=== PATIENT | female | born 1930 | race Caucasian/White ===

== ENCOUNTER 2017-03-14 18:08 | Inpatient (IN) | payer OTHER ==
[~2017-03-14] VITALS: Ht 157.5 cm; Wt 51.7 kg
--- NOTE | 2017-03-14 19:01 | NUR ---
PT IN ED WITH C/O COUGH X5 WEEKS AND SOB X1 DAY, PT REPORTS SEEING HER PCP 3 WEEKS AGO BUT THEY DIDNT GIVE HER ANY MEDICATIONS, PT IS IN MODERATE DISTRESS, BP IS ELEVATED, REPORTS SHE DOES NOT TAKE HER BP MED UNTIL THE EVENING, DENIES ANY PAIN AT THIS TIME; DR. FERNANDEZ PERFORMED MSE
[2017-03-14 19:06] LABS: CALCIUM 9.3 mg/dL (8.5-10.1); CARBON DIOXIDE 31.3 mmol/L (21-32); CHLORIDE SERUM 103 mmol/L (98-107); CREATININE SERUM 0.8 mg/dL (0.6-1.0); GLUCOSE SERUM 131 mg/dL (74-106); POTASSIUM SERUM 3.9 mmol/L (3.5-5.1); SODIUM SERUM 140 mmol/L (136-145)
[2017-03-14] MEDS ORDERED: EFFEXOR-XR37.5 MG PO (19:06)
[2017-03-14] MEDS ORDERED: LIPI10 PO (19:06)
[2017-03-14] MEDS ORDERED: ATENOLOL50 MG PO (19:07)
[2017-03-14] MEDS ORDERED: METFORMIN HYDR500 M1 PO (19:07)
[2017-03-14] MEDS ORDERED: COZAAR100 MG PO (19:07)
[2017-03-14] MEDS ORDERED: ALENDRONATE SOD70 M2 PO (19:08)
[2017-03-14] MEDS ORDERED: DORZOLAMIDE HYD10 ML OU (19:08)
--- NOTE | 2017-03-14 19:10 | NUR ---
XRAY AT BEDSIDE
--- NOTE | 2017-03-14 19:10 | NUR ---
REPORT RECEIVED FROM JF ARTEAGA AND JF JORDAN DAY SHIFT NURSES.
--- NOTE | 2017-03-14 19:13 | NUR ---
REPORT TO SHANNON RHOADES TO ASSUME CARE OF PT
[2017-03-14 19:19] LABS: BASOPHIL % 0.8 % (0-2); PLATELET COUNT 218 x10^3mcL (130-400); RED CELL DISTRIBUTION WIDTH 14.5 % (11.5-14.5)
[2017-03-14 19:29] LABS: ALBUMIN 3.4 g/dL (3.4-5.0); ALKALINE PHOSPHATASE 90 U/L (46-116); ALT/SGPT 14 U/L (14-59); AST/SGOT 14 U/L (15-37); BILIRUBIN TOTAL 0.6 mg/dL (0.20-1.00); T4(THYROXINE) 8.1 ug/dL (4.7-13.3); TOTAL PROTEIN, SERUM 7.8 g/dL (6.4-8.2)
[2017-03-14 19:42] LABS: CK-MB 0.6 ng/mL (0-3.6)
--- NOTE | 2017-03-14 19:53 | NUR ---
CALLED REPORT TO ALBERT, RECEIVING NURSE ON TELE.
--- NOTE | 2017-03-14 20:06 | NUR ---
PT AWARE FOR NEED FOR URINE SAMPLE. PT REPORTS THAT SHE JUST USED THE RESTROOM. TELE AWARE FOR NEED TO COLLECT URINE SAMPLE.
--- NOTE | 2017-03-14 20:20 | NUR ---
RECEIVED PT FROM ED VIA [facility], CAME IN DUE TO COUGH X5 WEEKS AND SOB X1 DAY. AAOX4. SPEECH IS CLEAR. W/ RIGHT FACIAL DROOP. HAND POLISHER APPRENTICE ARE EQUAL. DENIES HEADACHE/DIZZINESS. ABLE TO FOLLOW COMMANDS. C/O MILD SOB, RR=28. O2 SAT=96%. W/ LUNG CONGESTION NOTED ON AUSCULATATION. STATED THAT SHE HAS PRODUCTIVE COUGH, EXPECTORATES YELLOW PHLEGM. DENIES CHEST PAIN/PRESSURE, SR W/ MILD ST DEPRESSION AND PVC'S. DENIES ABDOMINAL DISCOMFORT. BOWEL SOUNDS ACTIVE. IV SITE PATENT AND INTACT. SIDE RAILS UPX2. CALL LIGHT ON REACH. ENDORSED TO PRIMARY NURSE ALBERT FOR CONTINUITY OF CARE.
[2017-03-14 20:31] VITALS: BP 216/95
[2017-03-14 20:34] VITALS: BP 216/95
--- NOTE | 2017-03-14 20:40 | NUR ---
SEEN PATIENT WALKED BACK FROM THE BATHROOM ASSISTED BY HER DAUGHTER. NO ANY DISTRESS NOTED. DENIESS DIZZINESS OR HEADACHE AT THIS TIME.
[2017-03-14 20:52] LABS: MAGNESIUM 1.7 mg/dL (1.8-2.4); PHOSPHOROUS 3.7 mg/dL (2.5-4.9)
[2017-03-14 20:53] LABS: CHOLESTEROL/HDL RATIO 2.6
[2017-03-14] MEDS ORDERED: METFORMIN HCL500 MG PO (20:57)
--- NOTE | 2017-03-14 21:59 | NUR ---
IVF NS STARTED AT 80ML/HR, MG RIDER INFUSING TO LT WRIST IV SITE. STS AWAITING FOR DAUGHTER TO BRING FOOD FROM HOME THEN PATIENT WILL TAKE BEDTIME MEDS. KEPT HOB EVEVATED AT 30DEG. DENIES HEADACHE/DIZZINESS OR CHEST PAIN AT THIS TIME.
--- NOTE | 2017-03-14 22:40 | NUR ---
DAUGHTER AT BEDSIDE, PATIENT FINISHED HER DINNER, COZAAR AND LOPRESSOR PO GIVEN. WILL CONTINUE TO MONITOR.
[2017-03-14 23:55] VITALS: BP 188/74
[2017-03-15] VITALS (9 sets, daily range): BP systolic 140–203; BP diastolic 73–96
--- NOTE | 2017-03-15 00:05 | NUR ---
BLOOD PRESSURE RECHECKED ON R UPPER ARM, READING IS 168/85. DENIES CHEST PAIN AT THIS TIME. DENIES PAIN AT THIS TIME. NO SOB NOTED. BREATHING IS EVEN AND UNLABORED. WILL CONTINUE TO MONITOR.
--- NOTE | 2017-03-15 00:15 | NUR ---
REPEATED BP AFTER COZAAR AND LOPRESSOR GIVEN BP =188/74, HR 72. DENIES HEADACHE OR CHEST PAIN. HYDRALAZINE 1MG IVP SLOWLY FOR ONE MINUTE GIVEN PER DOCTOR'S ORDER. WILL CONTINUE TO MONITOR.
--- NOTE | 2017-03-15 01:25 | NUR ---
PATIENT'S DAUGHTER CALLED, WENT INSIDE THE ROOM SAW PATIENT SITTING ON BSC. PER DAUGHTER STS HER MOTHER IS VERY WEAK AND ALMOST FALL OFF FROM THE BSC. ASSISTED PATIENT BACK FROM BSC, AWAKE, ALERT, ABLE TO FOLLOW COMMANDS. V/S CHECKED BP 149/81, HR 73, RR 22, O2SAT 96% O2 2LPM N/C MAINTAINED. FSBS =152. PATIENT STS SHE FEELS BETTER. KEPT PATIENT BEDREST AT THIS TIME. SCD TO BLE INPLACED. WILL CONTINUE TO MONITOR.
--- NOTE | 2017-03-15 02:30 | NUR ---
RESTING WITH EYES CLOSE. BREATHING EASY ON O2 2LPM N/C. DAUGTHER AT BEDSIDE. NS INFUSING WELL AT 80ML/HR.
[2017-03-15 05:52] LABS: microscopic required? YES; urine erythrocyte NEGATIVE (NEGATIVE)
[2017-03-15 06:00] LABS: AMPHETAMINE QUAL UR NONE DETECTED (NEG <=1000)
[2017-03-15 06:41] LABS: BASOPHIL % 0.3 % (0-2); PLATELET COUNT 212 x10^3mcL (130-400)
[2017-03-15 06:51] LABS: RED CELL DISTRIBUTION WIDTH 15.2 % (11.5-14.5)
[2017-03-15 07:09] LABS: CALCIUM 9.5 mg/dL (8.5-10.1); CARBON DIOXIDE 28.9 mmol/L (21-32); CHLORIDE SERUM 102 mmol/L (98-107); CREATININE SERUM 0.8 mg/dL (0.6-1.0); GLUCOSE SERUM 134 mg/dL (74-106); MAGNESIUM 2.4 mg/dL (1.8-2.4); PHOSPHOROUS 4.7 mg/dL (2.5-4.9); POTASSIUM SERUM 3.8 mmol/L (3.5-5.1); SODIUM SERUM 141 mmol/L (136-145)
--- NOTE | 2017-03-15 07:34 | NUR ---
RECEIVED PATIENT AWAKE/ALERT LAYING FLAT IN BED NO DISTRESS NOTED. DTR REMAIN AT BEDSIDE UPDATE POC. TELE # 15 NOTED; IV INTACT AND PATENT. TECH AT BEDSIDE PERFORM US VENOUS/ART TO ANDREA BARR. CALL LIGHT WITHIN REACH.
--- NOTE | 2017-03-15 09:30 | NUR ---
PATIENT RESTING IN BED NO DISTRESS NOTED, REPOSITION UP IN BED WITH DTR ASSISTED. ALL DUE MEDS GIVEN. NEEDS ATTENDED. CALL LIGHT WITHIN REACH.
--- NOTE | 2017-03-15 10:05 | NUR ---
MEDICATE FOR HEADACHE 4/10 WITH TYLENOL 650MG PO; NITRO PATCH REMOVED FROM CHEST WALL. CALL LIGHT WITHIN REACH.
--- NOTE | 2017-03-15 11:34 | NUR ---
PATIENT RESTING IN BED NO DISTRESS NOTED, REPORT SMALLS IS RELIEF. BS 124 NO COVERAGE NEEDED. CALL LIGHT WITHIN REACH.
--- NOTE | 2017-03-15 14:22 | NUR ---
ASSISTING PATIENT BACK FROM BATHROOM; REPOSITION UP IN BED. NITROGLYCERIN 0.4MG SL GIVEN FOR BP 187/79, MAP 115; HR 84; DTR REMAIN AT BEDSIDE. NEEDS ANTICIPATED.
--- NOTE | 2017-03-15 15:00 | NUR ---
PATIENT RESTING IN BED NO DISTRESS NOTED, DENIES PAIN. DTR REMAIN AT BEDSIDE. RECHECK BP 161/73, MAP 104, HR 81. CONT TO MONITOR.
--- NOTE | 2017-03-15 16:04 | NUR ---
DR. FOY SEEN PATIENT AND SPEAK TO DTR; ASSIST PATIENT UP TO CHAIR PER DR. FOY REQUEST; INSTRUCT PATIENT ON USING INCENTIVE SPIROMETER PATIENT DEMONSTRATED VOLUME 500ML; GOAL 1000ML PER DR. FOY. CALL LIGHT WITHIN REACH.
--- NOTE | 2017-03-15 16:29 | NUR ---
DR. MALCOLM SEEN PATIENT AND TALK TO DTMercedes WALLACE AT BEDSIDE, PER DR. MALCOLM NO HEART ISSUE; CHECK BS 99 NO COVERAGE NEEDED. CONT TO MONITOR.
--- NOTE | 2017-03-15 17:00 | NUR ---
PATIENT REMAIN UP IN CHAIR NO DISTRESS NOTED, NO COMPLAINT. DTR REMAIN AT BEDSIDE. DUE MEDS GIVEN. NEEDS ATTENDED. CALL LIGHT WITHIN REACH.
--- NOTE | 2017-03-15 17:45 | NUR ---
PATIENT BACK IN BED NO DISTRESS NOTED. CLEOCIN 600MP IVPB GIVEN TO LW AND PATENT. DINNER TRAY AT BEDSIDE PATIENT WANT TO EAT LATER. CALL LIGHT WITHIN REACH.
--- NOTE | 2017-03-15 18:18 | NUR ---
ASSISTING PATIENT TO BATHROOM AND BACK TO BED NO SOB NOTED, REPOSITION UP IN BED. LEVAQUIN 750MG IVPB STARTED TO LW. CALL LIGHT WITHIN REACH. CONT TO MONITOR.
--- NOTE | 2017-03-15 19:30 | NUR ---
PATIENT AWAKE AND SITTING AT EDGE OF BED EATING DINNER. A/O X4. DENIES PAIN AT THIS TIME. TELE #15 SHOWING NSR. DENIES CHEST PAIN AT THIS TIME. NO SOB NOTED. BREATHING IS EVEN AND UNLABORED. FINE CRACKLES ON BILAT UPPER LOBES, COARSE CRACKLES AT BASES DURING AUSCULTATION. STATES SHE HAS YELLOW COLOR SPUTUM WHEN SHE COUGHS. BOWEL SOUNDS ACTIVE X4 QUADRANTS. PULSES PALPABLE IN ALL EXTREMITIES. NO EDEMA NOTED. AMBULATORY WITH ASSISTANCE. CALL LIGHT IS WITHIN REACH, SIDE RAILS UP X2, BED IS IN LOWEST POSITION. WILL CONTINUE TO MONITOR.
--- NOTE | 2017-03-15 21:26 | NUR ---
PT REFUSED INSULIN ADMINISTRATION. SAYS HER HIGH BLOOD SUGAR LEVEL IS BECAUSE SHE "HAD A LATE DINNER". WILL NOTIFY DR. PERALES.
--- NOTE | 2017-03-15 22:20 | NUR ---
DR. PERALES MADE AWARE PT REFUSED INSULIN ADMINISTRATION.
--- NOTE | 2017-03-15 22:46 | NUR ---
ADMINISTERED HYDRALAZINE 0.5 ML IVP DUE TO CONTINUED HIGH BP AFTER ADMINISTRATION OF METOPROLOL AND [place]. WILL RECHECK BP.
--- NOTE | 2017-03-15 23:25 | NUR ---
PT C/O HEADACHE, MEDICATED WITH TYLENOL 650 MG PER EMAR. WILL CONTINUE TO MONITOR.
[2017-03-16 00:05] VITALS: BP 168/85
--- NOTE | 2017-03-16 00:05 | NUR ---
BLOOD PRESSURE RECHECKED ON R UPPER ARM. BP IS 168/85. DENIES CHEST PAIN AT THIS TIME. DENIES PAIN AT THIS TIME. BREATHING IS EVEN AND UNLABORED. NO SOB OBSERVED. WILL CONTINUE TO MONITOR.
--- NOTE | 2017-03-16 01:33 | NUR ---
PT SLEEPING AT THIS TIME. NO SIGNS OF PAIN OBSERVED. NO SOB NOTED. BREATHING IS EVEN AND UNLABORED. CALL LIGHT IS WITHIN REACH, SIDE RAILS UP X2, BED IS IN LOWEST POSITION. WILL CONTINUE TO MONITOR.
[2017-03-16 05:35] VITALS: BP 126/66
--- NOTE | 2017-03-16 06:48 | NUR ---
PT SITTING UP AT SIDE OF BED. PT SLEPT WELL THROUGHOUT THE NIGHT. DENIES PAIN AT THIS TIME. DENIES CHEST PAIN AT THIS TIME. NO SOB OBSERVED. BREATHING IS EVEN AND UNLABORED. ALL NEEDS MET AND ATTENDED TO. NO SIGNIFICANT CHANGES. IV IS PATENT AND INTACT. CALL LIGHT IS WITHIN REACH, BED IS IN LOWEST POSITION, SIDE RAILS UP X2. WILL ENDORSE CARE TO ONCOMING SHIFT NURSE.
--- NOTE | 2017-03-16 07:27 | NUR ---
RECEIVED REPORT FROM NOC JF PRUITT AT THIS TIME. PATIENT IS AWAKE, ALERT AND O X 4. TELE # [address] ON ROOM AIR, NO DISTRESS NOTED, WHEEZES TO UPPER LOBES, RONCHI TO LOWER BASSES, DENIES SOB. PULSES MODERATE, NO EDEMA. IV TO LEFT WRIST IN PLACE. SCDS IN PLACE. CALL LIGHT WITH IN REACH.
[2017-03-16 07:32] LABS: CHLORIDE SERUM 101 mmol/L (98-107); CREATININE SERUM 0.7 mg/dL (0.6-1.0); GLUCOSE SERUM 120 mg/dL (74-106); POTASSIUM SERUM 3.5 mmol/L (3.5-5.1); SODIUM SERUM 138 mmol/L (136-145)
[2017-03-16 08:15] LABS: BASOPHIL % 0.3 % (0-2); PLATELET COUNT 226 x10^3mcL (130-400)
[2017-03-16 08:22] LABS: RED CELL DISTRIBUTION WIDTH 15.4 % (11.5-14.5)
--- NOTE | 2017-03-16 09:05 | NUR ---
ROUNDS DONE AT THIS TIME. DR. CABAN, RESIDENT TEAM, CIVIL ESTIMATOR, PRIMARY RN AND DAUGHTER AT THE BEDSIDE. PLAN OF CARE DISCUSSED. QUESTIONS AND CONCERNS ADDRESSED.
--- NOTE | 2017-03-16 10:14 | NUR ---
NOTIFIED DR. LYMAN RHYTHM STRIP SHOWS ST WITH DEP T WAVE. PATIENT DENIES ANY CHEST PAIN.
[2017-03-16 10:17] VITALS: BP 162/63
[2017-03-16 12:20] VITALS: BP 162/80
--- NOTE | 2017-03-16 12:25 | NUR ---
NOTIFIED DR. LYMAN BP 162/80 AT THIS TIME
[2017-03-16 12:30] VITALS: BP 162/79
[2017-03-16] MEDS ORDERED: LEVAQUIN750 MG PO (12:50)
[2017-03-16] MEDS ORDERED: LAC PO (12:51)
[2017-03-16] MEDS ORDERED: PREDNISONE5 M1 PO (12:56)
[2017-03-16] MEDS ORDERED: ADV100/50 INH (12:58)
[2017-03-16 13:18] VITALS: BP 162/80
--- NOTE | 2017-03-16 14:17 | NUR ---
DISCHARGE INSTRUCTIONS GIVEN TO PATIENT AND DAUGHTER AT THIS TIME. BOTH VERBALIZE UNDERSTANDING. TELE # 15 REMOVED AND RETURNED TO SUB MASTER. ID BANDS REMOVED. IV REMOVED CATH INTACT.
== END 2017-03-16 14:21 | disposition home or self-care (01) | DRG 177 ==
LOC: ED 18:08 → DU 19:11
PROVIDERS: Emergency Medicine; ADMIT Family Medicine
DX: J69.0 Pneumonitis due to inhalation of food and vomit (principal); N17.0 Acute kidney failure with tubular necrosis; D68.69 Other thrombophilia; I48.91 Unspecified atrial fibrillation; I16.0 Hypertensive urgency; E83.42 Hypomagnesemia; E11.51 Type 2 diabetes mellitus with diabetic peripheral angiopathy without gangrene; E78.5 Hyperlipidemia, unspecified; D63.8 Anemia in other chronic diseases classified elsewhere; F32.9 Major depressive disorder, single episode, unspecified; H40.9 Unspecified glaucoma; Z68.20 Body mass index [BMI] 20.0-20.9, adult; M94.0 Chondrocostal junction syndrome [Tietze]
CPT/HCPCS: 36600; 82962; 83880; 94150; J0360; J1940; J1956; J3475; J3490; J7030; J7620; Q0092